=== PATIENT | female | born 1995 ===

== ENCOUNTER 2017-06-08 09:41 | Emergency (ER) | payer OTHER ==
[2017-06-08 10:20] VITALS: BP 114/76; PULSE 77; TEMP 98.2; O2SAT 100
--- NOTE | 2017-06-08 10:36 | C.PDOC ---
History Of Present Illness 21 year old female presents to the ER with complaint of bilateral lower back pain since yesterday. Patient states the pain occurred when she was slightly bent over. Patient initially had relief with motrin, however, she reports the pain now worsened this morning. Patient reports the pain also worsens when standing up from a sitting position, she has a Hx of right sided sciatica but states the current pain is "not like that". Denies any other associated symptoms. B/L LB PAIN SINCE YEST. ONSET WHILE SLIGHTLY BENT OVER. INITIAL RELIEF W MOTRIN BUT NOW WORSE THIS MORNING. WORSE W STANDING UP FROM SITTING. NO TRAUMA. HO R SCIATICA BUT CURRENT PAIN "NOT LIKE THAT". NO OTHER ASSOC SX EXAM NAD BACK LIMITED FULL EXT DUE TO PAIN +B/LSPASM NO LS TEND NEURO INTACT SKIN WNL Time Seen by Provider: 06/08/17 10:21 Chief Complaint (Nursing): Back Pain History Per: Patient History/Exam Limitations: no limitations Onset/Duration Of Symptoms: Days Current Symptoms Are (Timing): Still Present Quality Of Discomfort: Unable To Describe Previous Symptoms: Other (Right sided sciatica) Associated Symptoms: None Exacerbating Factor(s): Standing (From sitting) Recent travel outside of the [place]: No Past Medical History Reviewed: Historical Data, Nursing Documentation, Vital Signs Vital Signs: Last Vital Signs Temp 98.2 F 06/08/17 10:18 Pulse 77 06/08/17 10:18 Resp 14 06/08/17 10:18 BP 114/76 06/08/17 10:18 Pulse Ox 100 06/08/17 10:36 - Medical History PMH: No Chronic Diseases Surgical History: No Surg Hx Family History: States: Unknown Family Hx - Social History Hx Alcohol Use: No Hx Substance Use: No - Immunization History Hx Influenza Vaccination: No Hx Pneumococcal Vaccination: No Review Of Systems Except As Marked, All Systems Reviewed And Found Negative. Genitourinary: Negative for: Dysuria, Frequency, Incontinence, Hematuria Musculoskeletal: Positive for: Back Pain, Leg Pain Neurological: Negative for: Weakness, Numbness Physical Exam - Physical Exam Appears: Non-toxic, No Acute Distress Skin: Normal Color, Warm, Dry Head: Atraumatic, Normacephalic Back: No Paraspinal Tenderness, Other (Bilateral lumbar spasms. Full back exam limited due to pain.) Extremity: Normal ROM (x4) Neurological/Psych: Oriented x3, Normal Speech, Normal Motor, Normal Sensation Gait: Steady ED Course And Treatment O2 Sat by Pulse Oximetry: 100 (Room air) Pulse Ox Interpretation: Normal Medical Decision Making Medical Decision Making: Plan: * Flexeril * Motrin * Tylenol Disposition Counseled Patient/Family Regarding: Diagnosis, Need For Followup, Rx Given - Disposition Referrals: YOUR,PMD [Other] Disposition: HOME/ ROUTINE Disposition Time: 10:35 Condition: IMPROVED Prescriptions: Cyclobenzaprine [Flexeril] 10 mg PO TID #15 tab Ibuprofen [Motrin] 600 mg PO Q6 #30 tab Lidocaine 5% [Lidoderm] 1 ea TD PRN PRN #10 patch PRN Reason: Pain, Moderate (4-7) Instructions: Acute Low Back Pain (ED) Forms: [facility] (Welsh), Work Excuse - Clinical Impression Clinical Impression: Low back strain - Scribe Statement The provider has reviewed the documentation as recorded by the Scribe Vipul Aparicio All medical record entries made by the Scribe were at my direction and personally dictated by me. I have reviewed the chart and agree that the record accurately reflects my personal performance of the history, physical exam, medical decision making, and the department course for this patient. I have also personally directed, reviewed, and agree with the discharge instructions and disposition.
[2017-06-08 11:08] VITALS: RESP 18
== END 2017-06-08 11:02 | disposition home or self-care (01) ==
LOC: C.ER 09:41
DX: S39.012A Strain of muscle, fascia and tendon of lower back, initial encounter (principal); X50.1XXA Overexertion from prolonged static or awkward postures, initial encounter